=== PATIENT | male | born 1985 | race Two or more races ===

== ENCOUNTER → 2024-04-05 | Outpatient (CLI) | payer BC ==
[2024-04-05 08:19] LABS: Urine Bacteria None Seen /hpf (None Seen)
[2024-04-05 08:44] LABS: Urine Blood Negative /uL (Negative); Urine Clarity Clear (Clear); Urine Color Yellow (Yellow); Urine Hyaline Cast FEW /lpf (0 - 2); Urine Mucus FEW (None Seen); Urine Protein, UAD TRACE (Negative); Urine Specific Gravity 1.024 (1.001-1.035); Urine Urobilinogen Normal (Negative); Urine WBC 1 /hpf (0 - 3); Urine pH 6.5 (5.0-9.0)
[2024-04-05 09:09] LABS: Alanine Aminotransferase 22 U/L (7-40); Albumin 4.7 g/dL (3.2-4.8); Alkaline Phosphatase 76 U/L (46-116); Anion Gap 5 (5-15); Aspartate Aminotransferase 14 U/L (13-40); BUN/Creatinine Ratio 9.6 (10.0-20.0); Bilirubin, Total 1.1 mg/dL (0.2-1.0); Blood Urea Nitrogen 9 mg/dL (9-23); Calcium 9.9 mg/dL (8.5-10.1); Carbon Dioxide 27 mmol/L (20-30); Chloride 110 mmol/L (98-107); Cholesterol 171 mg/dL (< 200); Glucose 99 mg/dL (74-106); HDL Cholesterol 48 mg/dL (40-59); LDL Cholesterol 99 mg/dL (< 100); Potassium 4.1 mmol/L (3.5-5.1); Sodium 142 mmol/L (136-145); Triglycerides 85 mg/dL (< 150)
[2024-04-05 09:10] LABS: Total Protein 7.2 g/dL (5.7-8.2)
[2024-04-06 12:06] LABS: Hepatitis B Core Total Antibod Negative (Negative)
[2024-04-07 09:06] LABS: Chlamydia Trachomatis, NAA Negative (Negative); Neisseria gonorrhoeae, NAA Negative (Negative)
[2024-04-08 10:02] LABS: Hepatitis C Antibody Negative (Negative)
[2024-04-08 10:09] LABS: Hepatitis A Total Antibody Negative (Negative)
== END | disposition home or self-care (01) ==
LOC: LAB 07:59
PROVIDERS: ATTEND Nurse Practitioner Family
DX: I10 Essential (primary) hypertension (principal); E78.5 Hyperlipidemia, unspecified; E55.9 Vitamin D deficiency, unspecified; R73.09 Other abnormal glucose
CPT/HCPCS: 36415; 80053; 80061; 81001; 82043; 82306; 83036; 84443; 86708; 86803

== ENCOUNTER → 2024-05-10 | Outpatient (CLI) | payer BC ==
[2024-05-10 13:42] LABS: Creatinine, Urine 164.96 mg/dL (30.0-125.0)
[2024-05-10 13:45] LABS: Body Surface Area 2.15
[2024-05-10 13:51] LABS: Creatinine Clearance, Urine 113.92 mL/min (75-115)
== END | disposition home or self-care (01) ==
LOC: LAB 12:51
PROVIDERS: ATTEND Family Medicine
DX: I10 Essential (primary) hypertension (principal); E78.5 Hyperlipidemia, unspecified; E55.9 Vitamin D deficiency, unspecified; R73.09 Other abnormal glucose
CPT/HCPCS: 82575

== ENCOUNTER → 2024-10-11 | Outpatient (CLI) | payer BC ==
[2024-10-11 07:38] LABS: BUN/Creatinine Ratio 12.2 (10.0-20.0); Calcium 9.7 mg/dL (8.7-10.4); Potassium 4.4 mmol/L (3.5-5.1)
[2024-10-11 07:39] LABS: Albumin 4.6 g/dL (3.2-4.8)
[2024-10-11 07:40] LABS: Bilirubin, Direct 0.2 mg/dL (<0.3); Bilirubin, Total 0.8 mg/dL (0.2-1.0); Phosphorus 2.9 mg/dL (2.4-5.1)
[2024-10-14 10:34] LABS: Hepatitis B Surface Antigen Negative (Negative)
[2024-10-14 10:56] LABS: Hepatitis A Ab IgM Negative; Hepatitis B Core IgM Negative
[2024-10-14 10:57] LABS: Hepatitis C Antibody Negative (Negative)
== END | disposition home or self-care (01) ==
LOC: LAB 06:48
PROVIDERS: ATTEND Family Medicine
DX: E78.5 Hyperlipidemia, unspecified (principal); R73.9 Hyperglycemia, unspecified; E87.8 Other disorders of electrolyte and fluid balance, not elsewhere classified; E80.6 Other disorders of bilirubin metabolism; R80.0 Isolated proteinuria
CPT/HCPCS: 36415; 80061; 80069; 80074; 80076; 82043; 83036